=== PATIENT | male | born 1960 | race Caucasian/White ===

== ENCOUNTER 2022-09-10 12:33 | Emergency (ER) | payer MEDICAID ==
[~2022-09-10] VITALS: Ht 175.3 cm; Wt 80.7 kg
[2022-09-10] MEDS ORDERED: IV NS 0.9% 1,000 ML BAG IV ONE ×2 (13:30→15:00)
--- NOTE | 2022-09-10 13:32 | NUR ---
MOVE SHEET SUBMITTED.
--- NOTE | 2022-09-10 13:35 | NUR ---
IV ESTABLISHED. 20G RAC
--- NOTE | 2022-09-10 13:35 | NUR ---
BLOOD DRAWN AND SENT TO LAB
--- NOTE | 2022-09-10 13:38 | NUR ---
PATIENT TAKEN TO CT VIA [facility]
[2022-09-10 13:51] LABS: BASOPHILS % (AUTO) 0.2 % (0.0-2.0); EOSINOPHILS % (AUTO) 0.6 % (0.0-6.0); HEMATOCRIT 38 % (39-51); LYMPHOCYTES # (AUTO) 0.9 K/uL (0.8-4.8); LYMPHOCYTES % (AUTO) 15.8 % (20.0-44.0); MEAN CORPUSCULAR HGB CONC 32 g/dl (31.0-36.0); MEAN CORPUSCULAR VOLUME 82 fL (80-96); MONOCYTES # (AUTO) 0.5 K/uL (0.1-1.30); MONOCYTES % (AUTO) 8.8 % (2.0-12.0); NEUTROPHILS # (AUTO) 4.1 K/uL (1.8-8.9); NEUTROPHILS % (AUTO) 74.6 % (43.0-81.0); PLATELET COUNT (AUTO) 174 K/uL (150-450); RED BLOOD CELL COUNT(AUTO) 4.62 MIL/uL (4.5-6.0); WHITE BLOOD COUNT (AUTO) 5.5 K/uL (4.3-11.0)
--- NOTE | 2022-09-10 13:58 | NUR ---
COVID SWAB COLLECTED AND SENT TO LAB
[2022-09-10 13:59] LABS: CALCIUM, SERUM 11.1 mg/dL (8.5-10.1); CARBON DIOXIDE 27 mmol/L (21-32); CHLORIDE 102 mmol/L (98-107); CREATININE 1.1 mg/dL (0.6-1.3); GLUCOSE 148 mg/dL (74-106); POTASSIUM 4.1 mmol/L (3.5-5.1); SODIUM SERUM 138 mmol/L (136-145); UREA NITROGEN, BLOOD 19 mg/dL (7-18)
[2022-09-10 14:06] LABS: ALANINE AMINOTRANSFERASE 30 U/L (12-78); ALBUMIN 3.5 g/dL (3.4-5.0); ALKALINE PHOSPHATASE 120 U/L (46-116); ASPARTATE AMINOTRANSFERASE 16 U/L (15-37); BILIRUBIN,DIRECT 0.1 mg/dL (0.0-0.2); BILIRUBIN,TOTAL 0.4 mg/dL (0.2-1.0); TOTAL PROTEIN, SERUM 7.8 g/dL (6.4-8.2)
--- NOTE | 2022-09-10 14:24 | NUR ---
URINE COLLECTED AND SENT TO LAB
--- NOTE | 2022-09-10 14:36 | NUR ---
GIOVANNA REGAL [phone]
[2022-09-10 14:37] LABS: BILIRUBIN,URINE NEGATIVE (NEGATIVE); COLOR,URINE YELLOW (YELLOW); LEUKOCYTE ESTERASE ,URINE 2+ (NEGATIVE); NITRITE, URINE POSITIVE (NEGATIVE); PROTEIN,URINE 1+ mg/dl (NEGATIVE); UGLUCOSE NEGATIVE (NEGATIVE)
[2022-09-10] MEDS ORDERED: CEFTRIAXONE 1GM BAG (ER ONLY) 50 ML IV ONE ×2 (14:59→15:00)
[2022-09-10 15:15] LABS: BACTERIA,URINE 2+ /HPF (None Seen); RBC,URINE 0-2 /HPF (0-2); SQUAMOUS EPITHELIAL CELL,UR 0-2 /HPF (None Seen); WBC,URINE 51-80 /HPF (0-3)
[2022-09-10 15:16] LABS: MUCUS,URINE Moderate /LPF (None Seen)
[2022-09-10] MEDS ORDERED: ACETAMINOPHEN 325 MG TABLET PO PRN (16:00)
[2022-09-10] MEDS ORDERED: IV 1/2NS 1000 ML 1,000 ML IV PRN (16:00)
[2022-09-10] MEDS ORDERED: ONDANSETRON HCL/PF 4 MG/2 ML VIAL IVP PRN (16:00)
[2022-09-10] MEDS ORDERED: MAGNESIUM HYDROXIDE 30 ML UDC PO PRN (16:00)
[2022-09-10] MEDS ORDERED: Z GUARD REMEDY 4 OZ OINT TP PRN (16:00)
[2022-09-10] MEDS ORDERED: MAG HYDROX/AL HYDROX/SIMETH 30 ML UDC PO PRN (16:00)
[2022-09-10] MEDS ORDERED: HYDROCODONE/APAP 5/325MG TABLET PO PRN (16:00)
[2022-09-10] MEDS ORDERED: IV NS 0.9% 500 ML BAG IV ONE (18:00)
--- NOTE | 2022-09-10 18:53 | NUR ---
CALLED GIOVANNA CHEN [facility] [phone] FOR UPDATE: LOOKING FOR SNF FACILITY, WILL CONTACT US SOON THEY FIND A PLACEMENT.
--- NOTE | 2022-09-10 20:32 | NUR ---
ACCEPTED AT [facility]
--- NOTE | 2022-09-10 20:41 | NUR ---
PER GIOVANNA HILTON CM , PT GOT ACCEPTED AT [facility] ON [address] [facility]. TEL: [phone]
--- NOTE | 2022-09-10 21:03 | NUR ---
ROOM 7A AT FACILITY
--- NOTE | 2022-09-10 21:20 | NUR ---
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 AWAITINGFOR
--- NOTE | 2022-09-10 21:21 | NUR ---
AWAITING FOR CASIR FORM FROM GI[facility] ADMINISTRATIVE PROFESSIONAL. PT GOING TO RM 7A
--- NOTE | 2022-09-10 21:51 | NUR ---
[facility] CALLED ETA 90-120 MINUTES
--- NOTE | 2022-09-10 22:07 | NUR ---
TRANSPORTATION WAS POSTPONED TO 6AM PER SNF'S REQUEST.
[2022-09-11 05:01] LABS: BASOPHILS % (AUTO) 0.2 % (0.0-2.0); EOSINOPHILS % (AUTO) 1.7 % (0.0-6.0); HEMATOCRIT 34 % (39-51); HEMOGLOBIN 11.3 g/dL (13.5-17.5); LYMPHOCYTES # (AUTO) 1.1 K/uL (0.8-4.8); LYMPHOCYTES % (AUTO) 17.2 % (20.0-44.0); MEAN CORPUSCULAR HGB CONC 33 g/dl (31.0-36.0); MEAN CORPUSCULAR VOLUME 80 fL (80-96); MONOCYTES # (AUTO) 0.8 K/uL (0.1-1.30); MONOCYTES % (AUTO) 12.8 % (2.0-12.0); NEUTROPHILS # (AUTO) 4.2 K/uL (1.8-8.9); NEUTROPHILS % (AUTO) 68.1 % (43.0-81.0); PLATELET COUNT (AUTO) 159 K/uL (150-450); RED BLOOD CELL COUNT(AUTO) 4.24 MIL/uL (4.5-6.0); WHITE BLOOD COUNT (AUTO) 6.1 K/uL (4.3-11.0)
[2022-09-11 05:17] LABS: CALCIUM, SERUM 10.1 mg/dL (8.5-10.1); CREATININE 0.8 mg/dL (0.6-1.3); PHOSPHORUS 2.6 mg/dL (2.5-4.9); POTASSIUM 4.1 mmol/L (3.5-5.1)
[2022-09-11 06:00] VITALS: BP 120/69
[2022-09-11] MEDS ORDERED: CEPH500C2 PO (06:16)
--- NOTE | 2022-09-11 06:57 | NUR ---
[facility] AT BED SIDE TO TRANSFER PT TO SNF
[2022-09-11] MEDS ORDERED: PANTOPRAZOLE 40 MG TABLET.DR PO SCH (07:30)
[2022-09-11] MEDS ORDERED: CEFTRIAXONE 1 G in IV D5W 50 ML IV SCH (16:00)
== END 2022-09-11 07:28 ==
LOC: ER 12:53
DX: A41.9 Sepsis, unspecified organism (principal); N39.0 Urinary tract infection, site not specified; R53.1 Weakness; I10 Essential (primary) hypertension; Z20.822 Contact with and (suspected) exposure to COVID-19
CPT/HCPCS: 99291; 96365; 70450; 71045; 96361; 87426; 93005; 84145; 85025 ×2; 80048 ×2; 87086; 83605 ×2; 80076; 81001; 36415 ×2; 84484; 85730; 87040 ×2; 87081; 83735; 84100; J7030 ×2; J7040 ×2; J0696; C9803

== ENCOUNTER 2024-07-21 10:53 | Inpatient (IN) | payer MEDICARE, OTHER ==
[~2024-07-21] VITALS: Ht 175.3 cm; Wt 86.6 kg
[~2024-07-21 10:53] MED LIST: CEPH500C2 PO
[2024-07-21 11:28] LABS: APPEARANCE,URINE CLEAR (CLEAR); BILIRUBIN,URINE NEGATIVE (NEGATIVE); BLOOD, URINE NEGATIVE Ery/uL (NEGATIVE); COLOR,URINE YELLOW (YELLOW); KETONES,URINE NEGATIVE (NEGATIVE); LEUKOCYTE ESTERASE ,URINE TRACE (NEGATIVE); NITRITE, URINE NEGATIVE (NEGATIVE); PROTEIN,URINE NEGATIVE (NEGATIVE); UGLUCOSE NEGATIVE (NEGATIVE); UROBILINOGEN,URINE 0.2 EU/dL (0.2)
[2024-07-21 11:30] LABS: BASOPHILS % (AUTO) 0.6 % (0.0-2.0); EOSINOPHILS # (AUTO) 0.2 K/uL (0.0-0.7); HEMATOCRIT 42 % (39-51); HEMOGLOBIN 14.4 g/dL (13.5-17.5); LYMPHOCYTES # (AUTO) 1.2 K/uL (0.8-4.8); LYMPHOCYTES % (AUTO) 15.1 % (20.0-44.0); MEAN CORPUSCULAR HEMOGLOBIN 29 PG (26.0-33.0); MEAN CORPUSCULAR HGB CONC 34 g/dl (31.0-36.0); MEAN CORPUSCULAR VOLUME 85 fL (80-96); MONOCYTES # (AUTO) 0.7 K/uL (0.1-1.30); MONOCYTES % (AUTO) 8.1 % (2.0-12.0); NEUTROPHILS % (AUTO) 74.2 % (43.0-81.0); PLATELET COUNT (AUTO) 202 K/uL (150-450); RED BLOOD CELL COUNT(AUTO) 4.99 MIL/uL (4.5-6.0); RED CELL DISTRIBUTION WIDTH 13.5 % (11.5-15.0); WHITE BLOOD COUNT (AUTO) 8.1 K/uL (4.3-11.0)
[2024-07-21 11:36] LABS: AMPHETAMINE, URINE NEGATIVE (NEGATIVE); BARBITURATE, URINE NEGATIVE (NEGATIVE); BENZODIAZEPINE, URINE NEGATIVE (NEGATIVE); CANNABINOID, URINE NEGATIVE (NEGATIVE); COCCAINE, URINE NEGATIVE (NEGATIVE); OPIATE, URINE NEGATIVE (NEGATIVE); PHENCYCLIDINE SCREEN,URINE NEGATIVE (NEGATIVE)
[2024-07-21 11:38] LABS: CARBON DIOXIDE 23 mmol/L (21-32); CHLORIDE 106 mmol/L (98-107); CREATININE 1.3 mg/dL (0.6-1.3); GLUCOSE 147 mg/dL (74-106); POTASSIUM 4.2 mmol/L (3.5-5.1); SODIUM SERUM 140 mmol/L (136-145); UREA NITROGEN, BLOOD 22 mg/dL (7-18)
[2024-07-21 11:47] LABS: ALANINE AMINOTRANSFERASE 21 U/L (12-78); ALBUMIN 4.2 g/dL (3.4-5.0); ALKALINE PHOSPHATASE 124 U/L (46-116); ASPARTATE AMINOTRANSFERASE 21 U/L (15-37); BILIRUBIN,DIRECT 0.2 mg/dL (0.0-0.2); BILIRUBIN,TOTAL 0.7 mg/dL (0.2-1.0); TOTAL PROTEIN, SERUM 7.4 g/dL (6.4-8.2)
[2024-07-21 11:58] LABS: ACETAMINOPHEN <10 ug/ml (10-30); ALCOHOL, BLOOD < 3 mg/dL (0-10); SALICYLATE 0.7 mg/dL (2.8-20.0)
[2024-07-21] MEDS ORDERED: ATOR10TA PO (12:33)
[2024-07-21] MEDS ORDERED: TAMS-12 PO (12:33)
[2024-07-21] MEDS ORDERED: HYDR-500 PO (12:33)
[2024-07-21] MEDS ORDERED: VENL37.510 PO (12:33)
[2024-07-21] MEDS ORDERED: DIPH25TA27 PO (12:33)
[2024-07-21] MEDS ORDERED: ERGO500093 PO (12:33)
[2024-07-21] MEDS ORDERED: LISI10TA29 PO (12:33)
[2024-07-21] MEDS ORDERED: QUET50TA PO (12:33)
[2024-07-21] MEDS ORDERED: ASPI-1420 PO (12:33)
[2024-07-21] MEDS ORDERED: QUET100T PO (12:33)
[2024-07-21] MEDS ORDERED: TRAZ-182 PO (12:33)
[2024-07-21] MEDS ORDERED: PANT40TA49 PO (12:33)
[2024-07-21] MEDS ORDERED: BENZ1TAB7 PO (12:33)
[2024-07-21] MEDS ORDERED: METF-442 PO (12:33)
[2024-07-21] MEDS ORDERED: LITH300T3 PO (12:33)
[2024-07-21] MEDS ORDERED: DIVA500T54 PO (12:33)
[2024-07-21] MEDS ORDERED: CELE100C98 PO (12:33)
[2024-07-21 13:22] LABS: RBC,URINE 0-2 /HPF (0-2)
[2024-07-21 13:23] LABS: ADD URINE CULTURE YES; BACTERIA,URINE 1+ /HPF (None Seen); SQUAMOUS EPITHELIAL CELL,UR 0-2 /HPF (None Seen)
[2024-07-21 16:00] VITALS: O2SAT 98
[2024-07-21] MEDS ORDERED: MAG HYDROX/AL HYDROX/SIMETH 30 ML UDC PO PRN (17:00)
[2024-07-21] MEDS: BLOOD SUGAR DIAGNOSTIC 1 EACH STRIP IN ONE (17:52)
[2024-07-21 19:58] VITALS: BP 111/62; TEMP 98.4; O2SAT 100
[2024-07-21] MEDS ORDERED: DEXTROSE 50%-WATER 50 ML DISP.SYRIN IV PRN (21:00)
[2024-07-21] MEDS: ATORVASTATIN 10 MG TABLET PO SCH (21:42)
[2024-07-21] MEDS: TAMSULOSIN 0.4 MG CAP.SR.24H PO SCH (21:42)
[2024-07-21] MEDS: BLOOD SUGAR DIAGNOSTIC 1 EACH STRIP IN SCH (21:51)
[2024-07-21] MEDS: INSULIN REGULAR, HUMAN 100 UNIT/ML 3 ML VIAL SQ PRN (21:53)
[2024-07-22 07:38] LABS: ALBUMIN 3.9 g/dL (3.4-5.0); BILIRUBIN,TOTAL 0.6 mg/dL (0.2-1.0); CALCIUM, SERUM 9.9 mg/dL (8.5-10.1); CREATININE 1.1 mg/dL (0.6-1.3); POTASSIUM 4.2 mmol/L (3.5-5.1); TOTAL PROTEIN, SERUM 7.1 g/dL (6.4-8.2)
[2024-07-22 07:41] LABS: CHOLESTEROL 105 mg/dL (<200); HDL CHOLESTEROL 41 mg/dL (40-60); LDL 51 mg/dL (0-99); TRIGLYCERIDES 101 mg/dL (30-150)
[2024-07-22 08:00] VITALS: BP 138/77; TEMP 98.7; O2SAT 97
[2024-07-22] MEDS: CELECOXIB 100 MG CAPSULE PO SCH (08:54)
[2024-07-22] MEDS: PANTOPRAZOLE 40 MG TABLET.DR PO SCH (08:54)
[2024-07-22] MEDS: ASPIRIN EC 81 MG TABLET.DR PO SCH (08:54)
[2024-07-22] MEDS: LISINOPRIL (10MG) 10 MG TABLET PO SCH (08:58)
[2024-07-22] MEDS: LITHIUM CARBONATE (300 MG CAP) 300 MG CAPSULE PO SCH (12:26)
[2024-07-22 16:00] VITALS: BP 108/75; TEMP 98.6; O2SAT 99
[2024-07-22 16:27] LABS: CREATININE 1.1 mg/dL (0.6-1.3)
[2024-07-22] MEDS: DIVALPROEX SODIUM 500 MG TABLET.DR PO SCH (16:42)
[2024-07-22] MEDS: QUETIAPINE FUMARATE 25 MG TABLET PO SCH (16:42)
[2024-07-22 19:58] VITALS: BP 116/45; TEMP 98.6; O2SAT 100
[2024-07-22] MEDS: QUETIAPINE FUMARATE 100 MG TABLET PO SCH (21:29)
[2024-07-23 08:00] VITALS: BP 106/67; TEMP 98.6; O2SAT 95
[2024-07-23 16:00] VITALS: BP 110/58; TEMP 98.6; O2SAT 98
[2024-07-23 20:00] VITALS: BP 159/77; TEMP 98.1; O2SAT 98
[2024-07-24 08:00] VITALS: BP 105/58; TEMP 98; O2SAT 98
[2024-07-24 16:00] VITALS: BP 141/59; TEMP 98; O2SAT 98
[2024-07-24 20:00] VITALS: BP 127/82; TEMP 98; O2SAT 100
[2024-07-25 08:00] VITALS: BP 143/84; TEMP 97.9; O2SAT 96
[2024-07-25 16:00] VITALS: BP 138/72; TEMP 97.8; O2SAT 95
[2024-07-25 20:12] VITALS: BP 113/61; TEMP 99.3; O2SAT 100
[2024-07-26] MEDS: hydrOXYzine PAMOATE 25 MG CAPSULE PO PRN (05:40)
[2024-07-26 08:00] VITALS: BP 132/70; TEMP 98; O2SAT 100
[2024-07-26 15:40] VITALS: BP 109/56; TEMP 97.8; O2SAT 100
[2024-07-26 20:04] VITALS: BP 139/80; TEMP 97.9; O2SAT 100
[2024-07-27 08:00] VITALS: BP 124/67; TEMP 98.1; O2SAT 98
[2024-07-27] MEDS: DIVALPROEX SODIUM 125 MG CAP.SPRINK PO SCH (12:45)
[2024-07-27 16:00] VITALS: BP 124/77; TEMP 97.7; O2SAT 100
[2024-07-27 19:58] VITALS: BP 123/58; TEMP 97.9; O2SAT 100
[2024-07-28] MEDS: ZOLPIDEM TARTRATE 5 MG TABLET PO PRN (01:08)
[2024-07-28 08:00] VITALS: BP 122/74; TEMP 97.7; O2SAT 100
[2024-07-28] MEDS: HALOPERIDOL LACTATE INJ 5 MG/ML VIAL IM STA (14:03)
[2024-07-28] MEDS: diphenhydrAMINE HCL 50 MG/ML VIAL IV STA (14:46)
[2024-07-28 15:57] VITALS: BP 112/68; TEMP 98.1; O2SAT 96
[2024-07-28 20:00] VITALS: BP 112/59; TEMP 98.3; O2SAT 99
[2024-07-29 08:00] VITALS: BP 137/74; TEMP 98.6; O2SAT 100
[2024-07-29] MEDS: QUETIAPINE FUMARATE 25 MG TABLET PO SCH (13:21)
[2024-07-29 16:00] VITALS: BP 159/77; TEMP 98.6; O2SAT 95
[2024-07-29 20:15] VITALS: BP 145/78; TEMP 98.6; O2SAT 99
[2024-07-30 08:00] VITALS: BP 105/93; TEMP 97.5; O2SAT 100
[2024-07-30 16:00] VITALS: BP 138/81; TEMP 98; O2SAT 100
[2024-07-30 20:00] VITALS: BP 97/60; TEMP 97.9; O2SAT 99
[2024-07-31 08:00] VITALS: BP 109/74; TEMP 97.9; O2SAT 98
[2024-07-31 16:00] VITALS: BP 142/76; TEMP 98; O2SAT 97
[2024-07-31 20:07] VITALS: BP 143/71; TEMP 98.5; O2SAT 99
[2024-08-01] MEDS: ACETAMINOPHEN 325 MG TABLET PO PRN (04:25)
[2024-08-01 08:00] VITALS: BP 140/77; TEMP 98; O2SAT 98
[2024-08-01 16:00] VITALS: BP 135/75; TEMP 97.9; O2SAT 98
[2024-08-01] MEDS: MAGNESIUM HYDROXIDE 30 ML UDC PO PRN (16:45)
[2024-08-01 20:50] VITALS: BP 125/69; TEMP 97.8; O2SAT 98
[2024-08-02 07:49] LABS: APPEARANCE,URINE CLEAR (CLEAR); BILIRUBIN,URINE NEGATIVE (NEGATIVE); BLOOD, URINE NEGATIVE Ery/uL (NEGATIVE); COLOR,URINE YELLOW (YELLOW); KETONES,URINE NEGATIVE (NEGATIVE); LEUKOCYTE ESTERASE ,URINE NEGATIVE (NEGATIVE); NITRITE, URINE NEGATIVE (NEGATIVE); PROTEIN,URINE NEGATIVE (NEGATIVE); UGLUCOSE 2+ mg/dL (NEGATIVE)
[2024-08-02 08:00] VITALS: BP 123/90; TEMP 98; O2SAT 96
[2024-08-02 08:25] LABS: ADD URINE CULTURE NO; BACTERIA,URINE Rare /HPF (None Seen); RBC,URINE 0-2 /HPF (0-2); SQUAMOUS EPITHELIAL CELL,UR None Seen /HPF (None Seen); WBC,URINE 0-2 /HPF (0-3)
[2024-08-02 16:00] VITALS: BP 108/75; TEMP 98; O2SAT 95
[2024-08-02 20:34] VITALS: BP 116/71; TEMP 98.2; O2SAT 94
[2024-08-03 08:00] VITALS: BP 136/79; TEMP 98.6; O2SAT 95
== END 2024-08-03 13:45 | DRG 885 ==
LOC: ER 10:58 → GPS 15:29
PROVIDERS: ADMIT Psychiatry & Neurology Psychiatry; ATTEND Internal Medicine
DX: F25.0 Schizoaffective disorder, bipolar type (principal); F03.93 Unspecified dementia, unspecified severity, with mood disturbance; F03.92 Unspecified dementia, unspecified severity, with psychotic disturbance; F29 Unspecified psychosis not due to a substance or known physiological condition; I10 Essential (primary) hypertension; E11.9 Type 2 diabetes mellitus without complications; E78.5 Hyperlipidemia, unspecified; N40.0 Benign prostatic hyperplasia without lower urinary tract symptoms; Z79.84 Long term (current) use of oral hypoglycemic drugs; Z79.899 Other long term (current) drug therapy; Z20.822 Contact with and (suspected) exposure to COVID-19; M62.81 Muscle weakness (generalized); F41.9 Anxiety disorder, unspecified; F32.A Depression, unspecified; Z73.6 Limitation of activities due to disability
CPT/HCPCS: 36415; 80048-TC; 80053-TC; 80061-TC; 80076-TC; 80164-TC; 80178-TC; 81001; 82565-TC; 82962-TC; 85025-TC; 87086-TC; 97110-TC; 97116-TC; 97530-TC; G0480; J1200; J1630; J1815; Q0177

== ENCOUNTER 2024-09-29 15:30 | Inpatient (IN) | payer MEDICARE, OTHER ==
[~2024-09-29] VITALS: Ht 170.2 cm; Wt 89.8 kg
[2024-09-29 08:00] VITALS: BP 130/66; TEMP 99.7; O2SAT 99
[~2024-09-29 15:30] MED LIST changes: +ASPI-1420 PO; +ATOR10TA PO; +BENZ1TAB7 PO; +CELE100C98 PO; -CEPH500C2 PO; +DIPH25TA27 PO; +DIVA500T54 PO; +ERGO500093 PO; +HYDR-500 PO; +LISI10TA29 PO; +LITH300T3 PO; +METF-442 PO; +PANT40TA49 PO; +QUET100T PO; +QUET50TA PO; +TAMS-12 PO; +TRAZ-182 PO; +VENL37.510 PO
[2024-09-29] MEDS ORDERED: ACETAMINOPHEN ES 500 MG TABLET ONE (16:04)
[2024-09-29] MEDS: IV NS 0.9% 1,000 ML BAG IV ONE (16:05)
[2024-09-29] MEDS: ACETAMINOPHEN ES 500 MG TABLET PO ONE (16:06)
[2024-09-29 16:13] LABS: BASOPHILS % (AUTO) 0.1 % (0.0-2.0); EOSINOPHILS % (AUTO) 0.3 % (0.0-6.0); HEMATOCRIT 39 % (39-51); HEMOGLOBIN 12.8 g/dL (13.5-17.5); LYMPHOCYTES # (AUTO) 0.6 K/uL (0.8-4.8); MEAN CORPUSCULAR HEMOGLOBIN 28 PG (26.0-33.0); MEAN CORPUSCULAR HGB CONC 33 g/dl (31.0-36.0); MEAN CORPUSCULAR VOLUME 85 fL (80-96); MONOCYTES # (AUTO) 0.4 K/uL (0.1-1.30); MONOCYTES % (AUTO) 7.7 % (2.0-12.0); NEUTROPHILS # (AUTO) 4.8 K/uL (1.8-8.9); NEUTROPHILS % (AUTO) 81.9 % (43.0-81.0); PLATELET COUNT (AUTO) 154 K/uL (150-450); WHITE BLOOD COUNT (AUTO) 5.8 K/uL (4.3-11.0)
[2024-09-29 16:20] LABS: CALCIUM, SERUM 9.5 mg/dL (8.5-10.1); CARBON DIOXIDE 26 mmol/L (21-32); CHLORIDE 102 mmol/L (98-107); CREATININE 1.2 mg/dL (0.6-1.3); GLUCOSE 192 mg/dL (74-106); POTASSIUM 3.6 mmol/L (3.5-5.1); SODIUM SERUM 133 mmol/L (136-145); UREA NITROGEN, BLOOD 16 mg/dL (7-18)
[2024-09-29 16:28] LABS: LACTIC ACID 1.3 mmol/L (0.4-2.0)
[2024-09-29 16:30] LABS: APPEARANCE,URINE CLEAR (CLEAR); BILIRUBIN,URINE NEGATIVE (NEGATIVE); BLOOD, URINE 1+ Ery/uL (NEGATIVE); COLOR,URINE YELLOW (YELLOW); KETONES,URINE NEGATIVE (NEGATIVE); LEUKOCYTE ESTERASE ,URINE 2+ (NEGATIVE); NITRITE, URINE NEGATIVE (NEGATIVE); PROTEIN,URINE NEGATIVE (NEGATIVE); UGLUCOSE TRACE mg/dL (NEGATIVE); UROBILINOGEN,URINE 0.2 EU/dL (0.2)
[2024-09-29 16:34] LABS: ALANINE AMINOTRANSFERASE 24 U/L (12-78); ALBUMIN 3.2 g/dL (3.4-5.0); ALKALINE PHOSPHATASE 99 U/L (46-116); ASPARTATE AMINOTRANSFERASE 26 U/L (15-37); BILIRUBIN,DIRECT 0.2 mg/dL (0.0-0.2); BILIRUBIN,TOTAL 0.7 mg/dL (0.2-1.0); TOTAL PROTEIN, SERUM 7.2 g/dL (6.4-8.2)
[2024-09-29] MEDS: PIPERACILLIN /TAZOBACTAM 3.375 G in IV D5W 50 ML IV ONE (16:34)
[2024-09-29 16:35] LABS: INR 1.08 (0.91-1.10); PROTHROMBIN TIME 11.4 SECS (9.2-11.1)
[2024-09-29 16:42] LABS: ADD URINE CULTURE YES; BACTERIA,URINE Few /HPF (None Seen); SQUAMOUS EPITHELIAL CELL,UR Rare /HPF (None Seen); WBC,URINE 21-50 /HPF (0-3)
[2024-09-29] MEDS ORDERED: LITH300C2 PO (16:59)
[2024-09-29] MEDS ORDERED: LORA10TA7 PO (16:59)
[2024-09-29] MEDS ORDERED: VALP250C3 PO (16:59)
[2024-09-29] MEDS ORDERED: RISP1TAB97 PO (16:59)
[2024-09-29] MEDS ORDERED: ACET325T53 PO (16:59)
[2024-09-29] MEDS ORDERED: ACET-73 PO (16:59)
[2024-09-29] MEDS ORDERED: NA P133E RC (16:59)
[2024-09-29] MEDS ORDERED: HALO5VIA9 IM (16:59)
[2024-09-29] MEDS ORDERED: MAGN400O6 PO (16:59)
[2024-09-29] MEDS ORDERED: BISA10SU12 RC (16:59)
[2024-09-29] MEDS ORDERED: LORA-259 PO (16:59)
[2024-09-29] MEDS: VANCOMYCIN 1 GM in IV D5W 250 ML IV ONE (17:15)
[2024-09-29] MEDS ORDERED: DEXTROSE 50%-WATER 50 ML DISP.SYRIN IV PRN (18:00)
[2024-09-29] MEDS ORDERED: MAGNESIUM HYDROXIDE 30 ML UDC PO PRN (18:00)
[2024-09-29] MEDS ORDERED: ONDANSETRON HCL/PF 4 MG/2 ML VIAL IVP PRN (18:00)
[2024-09-29] MEDS ORDERED: MAG HYDROX/AL HYDROX/SIMETH 30 ML UDC PO PRN (18:00)
[2024-09-29] MEDS ORDERED: Z GUARD REMEDY 4 OZ OINT TP PRN (18:00)
[2024-09-29] MEDS: ENOXAPARIN SODIUM 40 MG/0.4 ML DISP.SYRIN SQ SCH (18:49)
[2024-09-29] MEDS: VALPROIC ACID 250 MG/5 ML UDC PO SCH (20:40)
[2024-09-29] MEDS: LITHIUM CARBONATE (300 MG CAP) 300 MG CAPSULE PO SCH (20:40)
[2024-09-29] MEDS: CEFEPIME 2 GM in IV D5W 100 ML IV SCH (20:40)
[2024-09-29] MEDS: BLOOD SUGAR DIAGNOSTIC 1 EACH STRIP IN SCH (22:18)
[2024-09-30] VITALS (7 sets, daily range): BP systolic 98–134; BP diastolic 56–74; TEMP 97.9–103.3; O2SAT 95–100
[2024-09-30] MEDS: ACETAMINOPHEN 325 MG TABLET PO PRN (00:03)
[2024-09-30] MEDS: LORAZEPAM 1 MG TABLET PO PRN ×2 (01:43→12:54)
[2024-09-30 07:24] LABS: BASOPHILS % (AUTO) 0.1 % (0.0-2.0); HEMATOCRIT 38 % (39-51); HEMOGLOBIN 12.3 g/dL (13.5-17.5); LYMPHOCYTES # (AUTO) 0.9 K/uL (0.8-4.8); LYMPHOCYTES % (AUTO) 8.9 % (20.0-44.0); MEAN CORPUSCULAR HEMOGLOBIN 28 PG (26.0-33.0); MEAN CORPUSCULAR HGB CONC 33 g/dl (31.0-36.0); MEAN CORPUSCULAR VOLUME 85 fL (80-96); MONOCYTES # (AUTO) 1.4 K/uL (0.1-1.30); MONOCYTES % (AUTO) 14.1 % (2.0-12.0); NEUTROPHILS # (AUTO) 7.6 K/uL (1.8-8.9); NEUTROPHILS % (AUTO) 76.9 % (43.0-81.0); PLATELET COUNT (AUTO) 135 K/uL (150-450); RED BLOOD CELL COUNT(AUTO) 4.41 MIL/uL (4.5-6.0); RED CELL DISTRIBUTION WIDTH 13.4 % (11.5-15.0); WHITE BLOOD COUNT (AUTO) 9.9 K/uL (4.3-11.0)
[2024-09-30 07:34] LABS: CALCIUM, SERUM 9.2 mg/dL (8.5-10.1); CREATININE 1.2 mg/dL (0.6-1.3); MAGNESIUM 2.4 mg/dL (1.8-2.4); PHOSPHORUS 2.6 mg/dL (2.5-4.9); POTASSIUM 4.2 mmol/L (3.5-5.1)
[2024-09-30] MEDS: HALOPERIDOL LACTATE INJ 5 MG/ML VIAL IM PRN (08:08)
[2024-09-30] MEDS: LORATADINE 10 MG TABLET PO SCH (08:28)
[2024-09-30] MEDS: risperiDONE 1 MG TABLET PO SCH ×2 (08:28→12:35)
[2024-09-30] MEDS: diphenhydrAMINE HCL 50 MG/ML VIAL IV ONE (09:01)
[2024-09-30] MEDS: HALOPERIDOL LACTATE INJ 5 MG/ML VIAL IM ONE (09:01)
[2024-09-30] MEDS: INSULIN REGULAR, HUMAN 100 UNIT/ML 3 ML VIAL SQ PRN (12:34)
[2024-10-01] VITALS: BP 119/70; TEMP 98.1; O2SAT 96
[2024-10-01 04:00] VITALS: BP 129/66; TEMP 98.1; O2SAT 97
[2024-10-01] MEDS: ZOLPIDEM TARTRATE 5 MG TABLET PO PRN (04:10)
[2024-10-01 06:35] LABS: BASOPHILS % (AUTO) 0.2 % (0.0-2.0); EOSINOPHILS # (AUTO) 0.1 K/uL (0.0-0.7); EOSINOPHILS % (AUTO) 2.5 % (0.0-6.0); HEMATOCRIT 37 % (39-51); HEMOGLOBIN 12.6 g/dL (13.5-17.5); LYMPHOCYTES # (AUTO) 1.1 K/uL (0.8-4.8); LYMPHOCYTES % (AUTO) 20.5 % (20.0-44.0); MEAN CORPUSCULAR HEMOGLOBIN 29 PG (26.0-33.0); MEAN CORPUSCULAR HGB CONC 34 g/dl (31.0-36.0); MEAN CORPUSCULAR VOLUME 85 fL (80-96); MONOCYTES # (AUTO) 0.6 K/uL (0.1-1.30); MONOCYTES % (AUTO) 10.7 % (2.0-12.0); NEUTROPHILS # (AUTO) 3.6 K/uL (1.8-8.9); NEUTROPHILS % (AUTO) 66.1 % (43.0-81.0); PLATELET COUNT (AUTO) 146 K/uL (150-450); RED BLOOD CELL COUNT(AUTO) 4.37 MIL/uL (4.5-6.0); RED CELL DISTRIBUTION WIDTH 12.9 % (11.5-15.0); WHITE BLOOD COUNT (AUTO) 5.4 K/uL (4.3-11.0)
[2024-10-01 07:24] LABS: CALCIUM, SERUM 9.3 mg/dL (8.5-10.1); CREATININE 1.1 mg/dL (0.6-1.3); MAGNESIUM 2.4 mg/dL (1.8-2.4); POTASSIUM 3.9 mmol/L (3.5-5.1)
[2024-10-01 08:00] VITALS: BP 128/69; TEMP 97.7; O2SAT 98
[2024-10-01] MEDS: HALOPERIDOL LACTATE INJ 5 MG/ML VIAL IM ONE (08:33)
[2024-10-01] MEDS: diphenhydrAMINE HCL 50 MG/ML VIAL IV ONE (08:38)
[2024-10-01 12:00] VITALS: BP 137/73; TEMP 97.5; O2SAT 99
[2024-10-01 16:00] VITALS: BP 116/67; TEMP 97.5; O2SAT 99
[2024-10-01] MEDS: K PHOS NEUTRAL 250 MG TABLET PO ONE (17:07)
[2024-10-01] MEDS ORDERED: HALOPERIDOL LACTATE INJ 5 MG/ML VIAL IM ONE (19:30)
[2024-10-01] MEDS ORDERED: LORAZEPAM INJ 2 MG/ML VIAL IM ONE (19:30)
[2024-10-01] MEDS ORDERED: diphenhydrAMINE HCL 50 MG/ML VIAL IM ONE (19:30)
[2024-10-01] MEDS ORDERED: MUPIROCIN OINT 2% 22 GM TUBE NS SCH (21:00)
[2024-10-01] MEDS ORDERED: CEPHALEXIN MONOHYDRATE 500 MG CAPSULE PO SCH (21:00)
[2024-10-01] MEDS ORDERED: ACET-3117 PO (22:00)
[2024-10-01] MEDS ORDERED: CEPH500C2 PO (22:02)
[2024-10-01] MEDS ORDERED: MUPI22OI7 TP (22:04)
== END 2024-10-01 19:49 | DRG 871 ==
LOC: ER 15:39 → TELE-TD 17:16 → UNDOADMIN 17:16 → TELE-TD 17:18 → TELE1 18:37 → TELE-TD 18:37 → GPS 10-01 19:04 → TELE1 10-01 19:04 → GPS 10-01 19:35 → UNDODISIN 10-01 19:49
PROVIDERS: ADMIT Nurse Practitioner Acute Care; ATTEND Nurse Practitioner Acute Care
DX: A41.9 Sepsis, unspecified organism (principal); G93.41 Metabolic encephalopathy; D68.59 Other primary thrombophilia; N39.0 Urinary tract infection, site not specified; E44.1 Mild protein-calorie malnutrition; E66.01 Morbid (severe) obesity due to excess calories; Z68.31 Body mass index [BMI] 31.0-31.9, adult; R16.1 Splenomegaly, not elsewhere classified; E78.5 Hyperlipidemia, unspecified; N40.1 Benign prostatic hyperplasia with lower urinary tract symptoms; N39.498 Other specified urinary incontinence; E88.09 Other disorders of plasma-protein metabolism, not elsewhere classified; I10 Essential (primary) hypertension; F41.9 Anxiety disorder, unspecified; E11.9 Type 2 diabetes mellitus without complications; F25.0 Schizoaffective disorder, bipolar type; Z79.899 Other long term (current) drug therapy; Z79.84 Long term (current) use of oral hypoglycemic drugs; Z78.1 Physical restraint status; Z22.322 Carrier or suspected carrier of Methicillin resistant Staphylococcus aureus
CPT/HCPCS: 36415; 71045-TC; 80048-TC; 80061-TC; 80076-TC; 81001; 82962-TC; 83605-TC; 83735-TC; 83880; 84100-TC; 84484-TC; 85025-TC; 85730-TC; 87040-TC; 87081-TC; 87086-TC; 93307-TC; A4223; G0378; J0692; J1200; J1630; J1650; J1815; J2543; J3230; J3370; J7030; J7040; J7050; J7060

== ENCOUNTER 2024-10-01 21:34 | Inpatient (IN) | payer MEDICARE, OTHER ==
[~2024-10-01] VITALS: Ht 170.2 cm; Wt 89.8 kg
[2024-10-01 20:00] VITALS: BP 142/65; TEMP 97.3; O2SAT 100
[~2024-10-01 21:34] MED LIST changes: +ACET-73 PO; +ACET325T53 PO; -ASPI-1420 PO; -ATOR10TA PO; -BENZ1TAB7 PO; +BISA10SU12 RC; -CELE100C98 PO; -DIPH25TA27 PO; -DIVA500T54 PO; -ERGO500093 PO; +HALO5VIA9 IM; -HYDR-500 PO; -LISI10TA29 PO; +LITH300C2 PO; +LORA-259 PO; +LORA10TA7 PO; +MAGN400O6 PO; -METF-442 PO; +NA P133E RC; -PANT40TA49 PO; -QUET100T PO; -QUET50TA PO; +RISP1TAB97 PO; -TAMS-12 PO; -TRAZ-182 PO; +VALP250C3 PO; -VENL37.510 PO
[2024-10-01] MEDS ORDERED: MAGNESIUM HYDROXIDE 30 ML UDC PO PRN (22:00)
[2024-10-01] MEDS ORDERED: ZOLPIDEM TARTRATE 5 MG TABLET PO PRN (22:00)
[2024-10-01] MEDS ORDERED: MAG HYDROX/AL HYDROX/SIMETH 30 ML UDC PO PRN (22:00)
[2024-10-01] MEDS ORDERED: ACET-3117 PO (22:00)
[2024-10-01] MEDS ORDERED: LORAZEPAM 0.5 MG TABLET PO PRN (22:00)
[2024-10-01] MEDS ORDERED: CEPH500C2 PO (22:02)
[2024-10-01] MEDS ORDERED: MUPI22OI7 TP (22:04)
[2024-10-01] MEDS ORDERED: DEXTROSE 50%-WATER 50 ML DISP.SYRIN IV PRN (22:30)
[2024-10-01] MEDS ORDERED: BISACODYL SUPP (10 MG) 10 MG/SUPP.RECT SUPP.RECT RC PRN (23:00)
[2024-10-01] MEDS ORDERED: NA PHOS,M-B/NA PHOS,DI-BA 1 EA ENEMA RC PRN (23:00)
[2024-10-01] MEDS: BLOOD SUGAR DIAGNOSTIC 1 EACH STRIP IN ONE (23:18)
[2024-10-01] MEDS ORDERED: ACETAMINOPHEN 325 MG TABLET PO PRN (23:30)
[2024-10-02] MEDS: ACETAMINOPHEN 325 MG TABLET PO PRN (06:30)
[2024-10-02] MEDS: BLOOD SUGAR DIAGNOSTIC 1 EACH STRIP IN SCH (07:02)
[2024-10-02] MEDS: INSULIN REGULAR, HUMAN 100 UNIT/ML 3 ML VIAL SQ PRN (07:34)
[2024-10-02 08:00] VITALS: BP 127/73; TEMP 97.7; O2SAT 98
[2024-10-02] MEDS: CEPHALEXIN MONOHYDRATE 500 MG CAPSULE PO SCH (08:22)
[2024-10-02] MEDS: LORATADINE 10 MG TABLET PO SCH (08:22)
[2024-10-02] MEDS: NICOTINE PATCH (14MG) 14 MG PATCH.TD24 TD SCH (08:33)
[2024-10-02] MEDS ORDERED: MAGNESIUM HYDROXIDE 30 ML UDC PO SCH (09:00)
[2024-10-02] MEDS: HYDROGEL DRESSING 90 GM TUBE TP SCH (09:24)
[2024-10-02] MEDS: MUPIROCIN OINT 2% 22 GM TUBE TP SCH (09:24)
[2024-10-02] MEDS: DIVALPROEX SODIUM 250 MG TABLET.DR PO SCH (13:25)
[2024-10-02] MEDS: risperiDONE 1 MG TABLET PO SCH (13:25)
[2024-10-02 16:00] VITALS: BP 154/69; TEMP 98.7; O2SAT 98
[2024-10-02 21:09] VITALS: BP 150/66; TEMP 98.2; O2SAT 98
[2024-10-02] MEDS: LITHIUM CARBONATE 150 MG CAPSULE PO SCH (21:15)
[2024-10-03] MEDS: LORAZEPAM 1 MG TABLET PO PRN (05:14)
[2024-10-03 07:43] LABS: CALCIUM, SERUM 9.6 mg/dL (8.5-10.1); POTASSIUM 4.7 mmol/L (3.5-5.1)
[2024-10-03 08:00] VITALS: BP 114/61; TEMP 97.9; O2SAT 100
[2024-10-03 08:12] LABS: BASOPHILS % (AUTO) 0.1 % (0.0-2.0); EOSINOPHILS # (AUTO) 0.2 K/uL (0.0-0.7); EOSINOPHILS % (AUTO) 2.4 % (0.0-6.0); HEMATOCRIT 38 % (39-51); HEMOGLOBIN 12.2 g/dL (13.5-17.5); LYMPHOCYTES # (AUTO) 1.3 K/uL (0.8-4.8); LYMPHOCYTES % (AUTO) 19.4 % (20.0-44.0); MEAN CORPUSCULAR HEMOGLOBIN 28 PG (26.0-33.0); MEAN CORPUSCULAR HGB CONC 33 g/dl (31.0-36.0); MEAN CORPUSCULAR VOLUME 85 fL (80-96); MONOCYTES # (AUTO) 0.5 K/uL (0.1-1.30); MONOCYTES % (AUTO) 7.6 % (2.0-12.0); NEUTROPHILS # (AUTO) 4.6 K/uL (1.8-8.9); NEUTROPHILS % (AUTO) 70.5 % (43.0-81.0); PLATELET COUNT (AUTO) 170 K/uL (150-450); RED BLOOD CELL COUNT(AUTO) 4.43 MIL/uL (4.5-6.0); RED CELL DISTRIBUTION WIDTH 12.8 % (11.5-15.0); WHITE BLOOD COUNT (AUTO) 6.5 K/uL (4.3-11.0)
[2024-10-03 16:00] VITALS: BP 119/63; TEMP 97.7; O2SAT 99
[2024-10-03 20:18] VITALS: BP 140/70; TEMP 97.7; O2SAT 98
[2024-10-03] MEDS: IBUPROFEN 600 MG TABLET PO PRN (22:55)
[2024-10-03] MEDS: ZOLPIDEM TARTRATE 5 MG TABLET PO PRN (23:19)
[2024-10-04 08:00] VITALS: BP 153/63; TEMP 97.8; O2SAT 98
[2024-10-04] MEDS: MUPIROCIN OINT 2% 22 GM TUBE NS SCH (09:03)
[2024-10-04] MEDS: diphenhydrAMINE HCL 50 MG/ML VIAL IM ONE (11:16)
[2024-10-04] MEDS: HALOPERIDOL LACTATE INJ 5 MG/ML VIAL IM ONE (11:17)
[2024-10-04] MEDS: risperiDONE 1 MG TABLET PO SCH (13:54)
[2024-10-04 15:29] VITALS: BP 128/61; TEMP 98.8; O2SAT 98
[2024-10-04 20:50] VITALS: BP 134/66; TEMP 98.6; O2SAT 97
[2024-10-05] MEDS: diphenhydrAMINE HCL 50 MG/ML VIAL IM STA (01:17)
[2024-10-05] MEDS: HALOPERIDOL LACTATE INJ 5 MG/ML VIAL IM STA (01:17)
[2024-10-05 08:00] VITALS: BP 122/57; TEMP 97.8; O2SAT 100
[2024-10-05] MEDS: HALOPERIDOL LACTATE INJ 5 MG/ML VIAL IM ONE (13:31)
[2024-10-05] MEDS: diphenhydrAMINE HCL 50 MG/ML VIAL IM ONE (13:31)
[2024-10-05 16:00] VITALS: BP 106/64; TEMP 98.4; O2SAT 98
[2024-10-05 20:33] VITALS: BP 143/84; TEMP 98.8; O2SAT 98
[2024-10-06] MEDS: HALOPERIDOL LACTATE INJ 5 MG/ML VIAL IM STA (07:49)
[2024-10-06] MEDS: diphenhydrAMINE HCL 50 MG/ML VIAL IM STA (07:49)
[2024-10-06 08:00] VITALS: BP 163/80; TEMP 97.8; O2SAT 97
[2024-10-06] MEDS: LITHIUM CARBONATE 150 MG CAPSULE PO SCH (12:03)
[2024-10-06] MEDS: risperiDONE 1 MG TABLET PO SCH (12:04)
[2024-10-06 16:05] VITALS: BP 140/62; TEMP 97.8; O2SAT 100
[2024-10-06] MEDS: DIVALPROEX SODIUM 250 MG TABLET.DR PO SCH (16:31)
[2024-10-06 20:19] VITALS: BP 139/67; TEMP 98.4; O2SAT 97
[2024-10-07 08:00] VITALS: BP 136/63; TEMP 98.7; O2SAT 98
[2024-10-07] MEDS: HALOPERIDOL LACTATE INJ 5 MG/ML VIAL IM ONE (12:46)
[2024-10-07] MEDS: diphenhydrAMINE HCL 50 MG/ML VIAL IM ONE (12:46)
[2024-10-07 16:00] VITALS: BP 118/60; TEMP 98.7; O2SAT 98
[2024-10-07 20:03] VITALS: BP 155/72; TEMP 98.1; O2SAT 99
[2024-10-08 08:00] VITALS: BP 133/87; TEMP 98; O2SAT 97
[2024-10-08 16:00] VITALS: BP 135/70; TEMP 97.8; O2SAT 98
[2024-10-08 19:53] VITALS: BP 117/62; TEMP 98.4; O2SAT 97
[2024-10-08] MEDS: TAMSULOSIN 0.4 MG CAP.SR.24H PO SCH (21:06)
[2024-10-09 08:00] VITALS: BP 123/76; TEMP 98.7; O2SAT 98
[2024-10-09 16:00] VITALS: BP 136/70; TEMP 98; O2SAT 97
[2024-10-09 20:00] VITALS: BP 124/63; TEMP 98.2; O2SAT 98
[2024-10-10 08:00] VITALS: BP 120/67; TEMP 97.7; O2SAT 94
[2024-10-10] MEDS: BACLOFEN (10 MG) 10 MG TABLET PO SCH (13:17)
[2024-10-10 16:00] VITALS: BP 108/70; TEMP 97.8; O2SAT 99
[2024-10-11 08:00] VITALS: BP 145/68; TEMP 98; O2SAT 100
[2024-10-11 16:05] VITALS: BP 105/60; TEMP 98.9; O2SAT 97
[2024-10-11 20:33] VITALS: BP 120/62; TEMP 98.1; O2SAT 98
[2024-10-12 08:00] VITALS: BP 135/62; TEMP 98.6; O2SAT 99
[2024-10-12] MEDS: DIVALPROEX SODIUM 250 MG TABLET.DR PO SCH (14:19)
[2024-10-12 16:00] VITALS: BP 128/74; TEMP 98.6; O2SAT 98
[2024-10-12 20:14] VITALS: BP 135/63; TEMP 97.9; O2SAT 96
[2024-10-13 08:00] VITALS: BP 136/76; TEMP 97.8; O2SAT 100
[2024-10-13 16:09] VITALS: BP 133/55; TEMP 97.8; O2SAT 98
[2024-10-13] MEDS: PREGABALIN 25 MG CAPSULE PO SCH (16:51)
[2024-10-13 20:15] VITALS: BP 137/79; TEMP 97.9; O2SAT 98
[2024-10-14 08:00] VITALS: BP 141/60; TEMP 98.6; O2SAT 98
[2024-10-14 16:00] VITALS: BP 125/61; TEMP 97.5; O2SAT 98
[2024-10-14 20:19] VITALS: BP 147/69; TEMP 97.8; O2SAT 99
[2024-10-15 08:00] VITALS: BP 122/71; TEMP 97.7; O2SAT 98
== END 2024-10-15 13:45 | DRG 885 ==
LOC: GPS 21:34
PROVIDERS: ADMIT Psychiatry & Neurology Psychiatry; ATTEND Nurse Practitioner Family
DX: F25.0 Schizoaffective disorder, bipolar type (principal); N39.0 Urinary tract infection, site not specified; F39 Unspecified mood [affective] disorder; E66.9 Obesity, unspecified; I10 Essential (primary) hypertension; E11.9 Type 2 diabetes mellitus without complications; E78.5 Hyperlipidemia, unspecified; N40.1 Benign prostatic hyperplasia with lower urinary tract symptoms; L89.96 Pressure-induced deep tissue damage of unspecified site; G56.03 Carpal tunnel syndrome, bilateral upper limbs; F31.2 Bipolar disorder, current episode manic severe with psychotic features; Z68.31 Body mass index [BMI] 31.0-31.9, adult; Z73.6 Limitation of activities due to disability; Z87.01 Personal history of pneumonia (recurrent); F03.90 Unspecified dementia, unspecified severity, without behavioral disturbance, psychotic disturbance, mood disturbance, and anxiety
CPT/HCPCS: 36415; 73130-TC; 80048-TC; 80061-TC; 80164-TC; 80178-TC; 82962-TC; 85025-TC; 87081-TC; A4349; A6248; J1200; J1630; J1815

== ENCOUNTER 2024-11-07 16:26 | Inpatient (IN) | payer MEDICARE, OTHER ==
[~2024-11-07] VITALS: Ht 175.3 cm; Wt 79.4 kg
[~2024-11-07 16:26] MED LIST changes: +ACET-3117 PO; -ACET-73 PO; -ACET325T53 PO; +CEPH500C2 PO; -HALO5VIA9 IM; -LITH300C2 PO; -LITH300T3 PO; -LORA-259 PO; +MUPI22OI7 TP; -RISP1TAB97 PO; -VALP250C3 PO
[2024-11-07 17:27] LABS: CALCIUM, SERUM 8.9 mg/dL (8.5-10.1); CREATININE 1.0 mg/dL (0.6-1.3); SODIUM SERUM 140 mmol/L (136-145); UREA NITROGEN, BLOOD 16 mg/dL (7-18)
[2024-11-07 17:33] LABS: ALCOHOL, BLOOD < 3 mg/dL (0-10); ASPARTATE AMINOTRANSFERASE 13 U/L (15-37); TOTAL PROTEIN, SERUM 6.4 g/dL (6.4-8.2)
[2024-11-07 17:49] LABS: PLATELET COUNT (AUTO) 123 K/uL (150-450); RED BLOOD CELL COUNT(AUTO) 4.53 MIL/uL (4.5-6.0); RED CELL DISTRIBUTION WIDTH 14.5 % (11.5-15.0); WHITE BLOOD COUNT (AUTO) 4.9 K/uL (4.3-11.0)
[2024-11-07 17:51] LABS: APPEARANCE,URINE CLEAR (CLEAR); BLOOD, URINE NEGATIVE Ery/uL (NEGATIVE); LEUKOCYTE ESTERASE ,URINE TRACE (NEGATIVE); NITRITE, URINE NEGATIVE (NEGATIVE); UGLUCOSE NEGATIVE (NEGATIVE)
[2024-11-07 18:09] LABS: AMPHETAMINE, URINE NEGATIVE (NEGATIVE); BARBITURATE, URINE NEGATIVE (NEGATIVE); BENZODIAZEPINE, URINE NEGATIVE (NEGATIVE); CANNABINOID, URINE NEGATIVE (NEGATIVE); COCCAINE, URINE NEGATIVE (NEGATIVE); OPIATE, URINE NEGATIVE (NEGATIVE)
[2024-11-07 18:11] LABS: ADD URINE CULTURE NO; SQUAMOUS EPITHELIAL CELL,UR 0-2 /HPF (None Seen)
[2024-11-07] MEDS ORDERED: LORAZEPAM 1 MG TABLET PO PRN (21:30)
[2024-11-07] MEDS ORDERED: MAGNESIUM HYDROXIDE 30 ML UDC PO PRN (21:30)
[2024-11-07] MEDS ORDERED: MAG HYDROX/AL HYDROX/SIMETH 30 ML UDC PO PRN (21:30)
[2024-11-07] MEDS ORDERED: ZOLPIDEM TARTRATE 5 MG TABLET PO PRN (21:30)
[2024-11-07] MEDS: BLOOD SUGAR DIAGNOSTIC 1 EACH STRIP IN ONE (21:46)
[2024-11-08] MEDS ORDERED: INSU100V3 SQ (08:05)
[2024-11-08] MEDS ORDERED: PREG25CA51 PO (08:05)
[2024-11-08] MEDS ORDERED: TAMS-12 PO (08:05)
[2024-11-08] MEDS ORDERED: CARB1TAB21 PO (08:05)
[2024-11-08] MEDS ORDERED: DIVA500T2 PO (08:05)
[2024-11-08] MEDS ORDERED: BACL10TA PO (08:05)
[2024-11-08] MEDS ORDERED: LIDO30AD10 TP (08:05)
[2024-11-08] MEDS ORDERED: ZOLP5TAB2 PO (08:05)
[2024-11-08] MEDS ORDERED: IBUP-1955 PO (08:05)
[2024-11-08] MEDS ORDERED: RISP3TAB5 PO (08:05)
[2024-11-08] MEDS ORDERED: MAG30ORA PO (08:05)
[2024-11-08] MEDS ORDERED: LORA-259 PO (08:05)
[2024-11-08 08:06] LABS: ASPARTATE AMINOTRANSFERASE 13.0 U/L (15-37); CALCIUM, SERUM 9.4 mg/dL (8.5-10.1); CREATININE 1.0 mg/dL (0.6-1.3); SODIUM SERUM 142.0 mmol/L (136-145); TOTAL PROTEIN, SERUM 6.6 g/dL (6.4-8.2); UREA NITROGEN, BLOOD 18.0 mg/dL (7-18)
[2024-11-08 08:13] VITALS: BP 137/65; TEMP 98.2; O2SAT 97
[2024-11-08 08:24] LABS: LDL 196.0 mg/dL (0-99)
[2024-11-08] MEDS ORDERED: DEXTROSE 50%-WATER 50 ML DISP.SYRIN IV PRN (09:00)
[2024-11-08] MEDS: DIVALPROEX SODIUM 500 MG TABLET.DR PO SCH (09:00)
[2024-11-08] MEDS: PREGABALIN 25 MG CAPSULE PO SCH (09:52)
[2024-11-08] MEDS: CARBIDOPA/LEVODOPA 25/100 MG 1 UDTAB PO SCH (09:52)
[2024-11-08] MEDS: DOCUSATE SODIUM LIQ 100 MG/10 ML UDC PO SCH (09:52)
[2024-11-08] MEDS: POLYETHYLENE GLYCOL 3350 17 GM POWD.PACK PO SCH (09:53)
[2024-11-08] MEDS: LORAZEPAM INJ 2 MG/ML VIAL IM ONE (10:25)
[2024-11-08] MEDS: HALOPERIDOL LACTATE INJ 5 MG/ML VIAL IM ONE (10:26)
[2024-11-08] MEDS: BLOOD SUGAR DIAGNOSTIC 1 EACH STRIP IN SCH (11:53)
[2024-11-08] MEDS: INSULIN REGULAR, HUMAN 100 UNIT/ML 3 ML VIAL SQ PRN (11:58)
[2024-11-08 17:41] VITALS: BP 132/55; TEMP 97.8; O2SAT 96
[2024-11-08 20:40] VITALS: BP 130/62; TEMP 98; O2SAT 96
[2024-11-08] MEDS: TAMSULOSIN 0.4 MG CAP.SR.24H PO SCH (21:12)
[2024-11-08 21:55] LABS: CREATININE 1.1 mg/dL (0.6-1.3)
[2024-11-09 08:00] VITALS: BP 122/74; TEMP 98.1; O2SAT 99
[2024-11-09] MEDS: ATORVASTATIN 40 MG TABLET PO SCH (09:35)
[2024-11-09 15:59] VITALS: BP 140/73; TEMP 97.7; O2SAT 98
[2024-11-09] MEDS: DIVALPROEX SODIUM 500 MG TABLET.DR PO SCH (16:15)
[2024-11-09 19:40] VITALS: BP 120/75; TEMP 98; O2SAT 98
[2024-11-09] MEDS: PALIPERIDONE PALMITATE 234 MG/1.5 ML SYRINGE IM ONE (19:52)
[2024-11-09 20:05] VITALS: BP 116/52; TEMP 98; O2SAT 100
[2024-11-10 08:16] VITALS: BP 104/65; TEMP 97.8; O2SAT 98
[2024-11-10 16:08] VITALS: BP 130/72; TEMP 97.8; O2SAT 96
[2024-11-10 19:53] VITALS: BP 156/98; TEMP 98.3; O2SAT 98
[2024-11-11 08:00] VITALS: BP 122/69; TEMP 98.1; O2SAT 99
[2024-11-11 16:00] VITALS: BP 116/68; TEMP 98.7; O2SAT 97
[2024-11-11 19:47] VITALS: BP 122/71; TEMP 98.4; O2SAT 98
[2024-11-11 23:05] VITALS: BP 122/70; TEMP 97.8; O2SAT 97
[2024-11-12 08:00] VITALS: BP 128/62; TEMP 98.1; O2SAT 98
[2024-11-12 16:00] VITALS: BP 122/58; TEMP 98.8; O2SAT 95
[2024-11-13 08:00] VITALS: BP 112/73; TEMP 97.8; O2SAT 95
[2024-11-13 08:01] LABS: PLATELET COUNT (AUTO) 128 K/uL (150-450); RED BLOOD CELL COUNT(AUTO) 4.89 MIL/uL (4.5-6.0); RED CELL DISTRIBUTION WIDTH 14.8 % (11.5-15.0); WHITE BLOOD COUNT (AUTO) 4.7 K/uL (4.3-11.0)
[2024-11-13] MEDS: PROPRANOLOL HCL 10 MG TABLET PO SCH (14:22)
[2024-11-13 16:00] VITALS: BP 124/77; TEMP 97.9; O2SAT 96
[2024-11-14 08:00] VITALS: BP 107/71; TEMP 98.6; O2SAT 98
[2024-11-14 16:00] VITALS: BP 136/98; TEMP 98.1; O2SAT 98
[2024-11-14 20:14] VITALS: BP 120/58; TEMP 98.2; O2SAT 99
[2024-11-15 08:00] VITALS: BP 109/86; TEMP 97.7; O2SAT 98
[2024-11-15] MEDS: PALIPERIDONE PALMITATE 156 MG/ML SYRINGE IM ONE (11:13)
[2024-11-15] MEDS: LORAZEPAM 0.5 MG TABLET PO PRN (15:54)
[2024-11-15 16:00] VITALS: BP 109/57; TEMP 98.6; O2SAT 98
[2024-11-15] MEDS: LOPERAMIDE HCL (2 MG CAP) 2 MG CAPSULE PO PRN (17:46)
[2024-11-15 20:34] VITALS: BP 107/56; TEMP 98.6; O2SAT 98
[2024-11-16 08:00] VITALS: BP 100/77; TEMP 98; O2SAT 100
[2024-11-16 16:00] VITALS: BP 108/66; TEMP 97.9; O2SAT 97
[2024-11-16 19:53] VITALS: BP 116/55; TEMP 98; O2SAT 97
[2024-11-17 08:00] VITALS: BP 163/65; TEMP 98.7; O2SAT 97
[2024-11-17] MEDS: BENZTROPINE MESYLATE (1 MG) 1 MG TABLET PO ONE (15:52)
[2024-11-17 16:00] VITALS: BP 110/85; TEMP 98.7; O2SAT 100
[2024-11-17 20:05] VITALS: BP 110/64; TEMP 98.6; O2SAT 100
[2024-11-18] MEDS: ZOLPIDEM TARTRATE 5 MG TABLET PO PRN (00:42)
[2024-11-18] MEDS: ACETAMINOPHEN 325 MG TABLET PO PRN (06:15)
[2024-11-18 08:00] VITALS: BP 130/70; TEMP 97.9; O2SAT 99
[2024-11-18] MEDS: OLANZAPINE 10 MG VIAL IM STA (08:17)
[2024-11-18] MEDS: BENZTROPINE MESYLATE (1 MG) 1 MG TABLET PO SCH (09:00)
[2024-11-18] MEDS: DIVALPROEX SODIUM 125 MG TABLET.DR PO SCH (12:59)
[2024-11-18 13:00] LABS: APPEARANCE,URINE CLEAR (CLEAR); BLOOD, URINE NEGATIVE Ery/uL (NEGATIVE); LEUKOCYTE ESTERASE ,URINE NEGATIVE (NEGATIVE); NITRITE, URINE NEGATIVE (NEGATIVE); UGLUCOSE NEGATIVE (NEGATIVE)
[2024-11-18 16:00] VITALS: BP 109/63; TEMP 98.4; O2SAT 98
[2024-11-18 19:56] VITALS: BP 146/76; TEMP 97.8; O2SAT 99
[2024-11-19 08:00] VITALS: BP 124/61; TEMP 98.6; O2SAT 97
[2024-11-19 16:00] VITALS: BP 129/72; TEMP 98.6; O2SAT 98
[2024-11-19 19:40] VITALS: BP 121/72; TEMP 98.4; O2SAT 99
[2024-11-20] MEDS ORDERED: LORAZEPAM 0.5 MG TABLET ONE ×2 (01:43→01:53)
[2024-11-20 08:00] VITALS: BP 117/83; TEMP 98.1; O2SAT 99
[2024-11-20 08:07] LABS: FOLIC ACID 6.8 ng/mL (>3.0)
[2024-11-20 08:38] VITALS: BP 117/83
[2024-11-24 06:07] LABS: VITAMIN B1 THIAMINE,WB 142.7 nmol/L (66.5-200.0)
== END 2024-11-20 13:25 | DRG 885 ==
LOC: ER 16:33 → GPS 20:30
PROVIDERS: ADMIT Psychiatry & Neurology Psychiatry; ATTEND Nurse Practitioner Family
DX: F39 Unspecified mood [affective] disorder (principal); F03.92 Unspecified dementia, unspecified severity, with psychotic disturbance; F03.93 Unspecified dementia, unspecified severity, with mood disturbance; F03.918 Unspecified dementia, unspecified severity, with other behavioral disturbance; F25.0 Schizoaffective disorder, bipolar type; D64.9 Anemia, unspecified; I10 Essential (primary) hypertension; F29 Unspecified psychosis not due to a substance or known physiological condition; E11.9 Type 2 diabetes mellitus without complications; Z79.899 Other long term (current) drug therapy; E78.5 Hyperlipidemia, unspecified; N40.0 Benign prostatic hyperplasia without lower urinary tract symptoms; F17.210 Nicotine dependence, cigarettes, uncomplicated; D69.6 Thrombocytopenia, unspecified; Z91.199 Patient's noncompliance with other medical treatment and regimen due to unspecified reason; Z73.6 Limitation of activities due to disability; G25.2 Other specified forms of tremor
CPT/HCPCS: 36415; 70450-TC; 80048-TC; 80053-TC; 80061-TC; 80076-TC; 80164-TC; 81001; 82565-TC; 82607-TC; 82962-TC; 83921; 84425; 84443-TC; 85025-TC; 87081-TC; G0480; J1630; J1815; J2060; J2426; J3490

== ENCOUNTER 2024-12-22 12:34 | Inpatient (IN) | payer MEDICARE, OTHER ==
[~2024-12-22] VITALS: Ht 172.7 cm; Wt 100.7 kg
[~2024-12-22 12:34] MED LIST changes: +BACL10TA PO; -BISA10SU12 RC; +CARB1TAB21 PO; -CEPH500C2 PO; +DIVA500T2 PO; +IBUP-1955 PO; +INSU100V3 SQ; +LIDO30AD10 TP; +LORA-259 PO; +MAG30ORA PO; -MUPI22OI7 TP; -NA P133E RC; +PREG25CA51 PO; +RISP3TAB5 PO; +TAMS-12 PO; +ZOLP5TAB2 PO
[2024-12-22] MEDS ORDERED: RISP1TAB97 PO (13:18)
[2024-12-22] MEDS ORDERED: POLY17PO4 PO (13:18)
[2024-12-22] MEDS ORDERED: LOPE2TAB25 PO (13:18)
[2024-12-22] MEDS ORDERED: ATOR80TA PO (13:18)
[2024-12-22] MEDS ORDERED: DOCU100C36 PO (13:18)
[2024-12-22] MEDS ORDERED: DIVA125T32 PO (13:18)
[2024-12-22] MEDS ORDERED: PROP10TA10 PO (13:18)
[2024-12-22] MEDS ORDERED: TEMA15CA PO (13:18)
[2024-12-22] MEDS ORDERED: ONDANSETRON HCL/PF 4 MG/2 ML VIAL ONE (13:29)
[2024-12-22] MEDS: IV NS 0.9% 500 ML BAG IV ONE (13:33)
[2024-12-22] MEDS: ONDANSETRON HCL/PF 4 MG/2 ML VIAL IVP ONE (13:34)
[2024-12-22 13:45] LABS: APPEARANCE,URINE SLIGHTLY CLOUDY (CLEAR); BLOOD, URINE TRACE-INTA Ery/uL (NEGATIVE); LEUKOCYTE ESTERASE ,URINE 3+ (NEGATIVE); NITRITE, URINE NEGATIVE (NEGATIVE); UGLUCOSE 2+ mg/dL (NEGATIVE)
[2024-12-22 13:48] LABS: ADD URINE CULTURE YES; SQUAMOUS EPITHELIAL CELL,UR Rare /HPF (None Seen)
[2024-12-22 13:49] LABS: CALCIUM, SERUM 9.6 mg/dL (8.5-10.1); CREATININE 1.3 mg/dL (0.6-1.3); SODIUM SERUM 137.0 mmol/L (136-145); UREA NITROGEN, BLOOD 22.0 mg/dL (7-18)
[2024-12-22 13:54] LABS: ASPARTATE AMINOTRANSFERASE 13.0 U/L (15-37); TOTAL PROTEIN, SERUM 6.8 g/dL (6.4-8.2)
[2024-12-22 13:58] LABS: PLATELET COUNT (AUTO) 90 K/uL (150-450); RED BLOOD CELL COUNT(AUTO) 4.48 MIL/uL (4.5-6.0); RED CELL DISTRIBUTION WIDTH 14.4 % (11.5-15.0); WHITE BLOOD COUNT (AUTO) 5.1 K/uL (4.3-11.0)
[2024-12-22 17:00] VITALS: O2SAT 98
[2024-12-22] MEDS: LEVOFLOXACIN 750 MG /D5W 150ML 750 MG in PREMIX 1 EA IV SCH (17:36)
[2024-12-22] MEDS ORDERED: ONDANSETRON HCL/PF 4 MG/2 ML VIAL IVP PRN (20:00)
[2024-12-22] MEDS ORDERED: MORPHINE SULFATE INJ 2 MG/ML DISP.SYRIN IV PRN (20:00)
[2024-12-22] MEDS ORDERED: Z GUARD REMEDY 4 OZ OINT TP PRN (20:00)
[2024-12-22] MEDS ORDERED: MORPHINE SULFATE INJ 4 MG/ML DISP.SYRIN IV PRN (20:00)
[2024-12-22] MEDS ORDERED: DEXTROSE 50%-WATER 50 ML DISP.SYRIN IV PRN (20:00)
[2024-12-22 20:20] VITALS: BP 117/97; TEMP 98.2; O2SAT 95
[2024-12-22] MEDS: IV NS 0.9% 1,000 ML IV PRN (20:58)
[2024-12-22] MEDS: BLOOD SUGAR DIAGNOSTIC 1 EACH STRIP IN SCH (20:58)
[2024-12-22] MEDS: INSULIN REGULAR, HUMAN 100 UNIT/ML 3 ML VIAL SQ PRN (21:10)
[2024-12-22] MEDS: ACETAMINOPHEN 325 MG TABLET PO PRN (21:44)
[2024-12-22] MEDS ORDERED: LORAZEPAM 1 MG TABLET PO PRN (23:00)
[2024-12-22] MEDS ORDERED: LOPERAMIDE HCL (2 MG CAP) 2 MG CAPSULE PO PRN (23:30)
[2024-12-23] MEDS: PROPRANOLOL HCL 10 MG TABLET PO SCH (04:33)
[2024-12-23 06:17] LABS: PLATELET COUNT (AUTO) 100 K/uL (150-450); RED BLOOD CELL COUNT(AUTO) 4.36 MIL/uL (4.5-6.0); RED CELL DISTRIBUTION WIDTH 14.4 % (11.5-15.0); WHITE BLOOD COUNT (AUTO) 4.0 K/uL (4.3-11.0)
[2024-12-23 06:30] LABS: CALCIUM, SERUM 9.7 mg/dL (8.5-10.1); CREATININE 1.1 mg/dL (0.6-1.3); PHOSPHORUS 3.4 mg/dL (2.5-4.9); SODIUM SERUM 143.0 mmol/L (136-145); UREA NITROGEN, BLOOD 20.0 mg/dL (7-18)
[2024-12-23 06:45] LABS: IRON, SERUM 54.0 ug/dl (50-175)
[2024-12-23 07:18] LABS: EOSINOPHILS % (MANUAL) 1 % (0-4); LYMPHOCYTES % (MANUAL) 21 % (16-48); MONOCYTES % (MANUAL) 15 % (0-11.0); NEUTROPHILS % (MANUAL) 63 (42-76); PLATELET ESTIMATE DECREASED
[2024-12-23 08:00] VITALS: BP 122/77; TEMP 98.2; O2SAT 96
[2024-12-23] MEDS: CARBIDOPA/LEVODOPA 25/100 MG 1 UDTAB PO SCH (08:10)
[2024-12-23] MEDS: DIVALPROEX SODIUM 125 MG TABLET.DR PO SCH (08:10)
[2024-12-23] MEDS: PANTOPRAZOLE 40 MG TABLET.DR PO SCH (08:10)
[2024-12-23] MEDS: DOCUSATE SODIUM 100 MG CAPSULE PO SCH (08:10)
[2024-12-23] MEDS: PREGABALIN 25 MG CAPSULE PO SCH (08:10)
[2024-12-23] MEDS: LIDOCAINE 5% (PATCH) 1 EA PATCH TP SCH (08:11)
[2024-12-23] MEDS: CIPROFLOXACIN IV RTU 400 MG in PREMIX 1 EA IV SCH (09:50)
[2024-12-23] MEDS: CLOTRIMAZOLE 1% 15 GM TUBE TP SCH (11:22)
[2024-12-23 15:52] VITALS: BP 115/65; TEMP 97.9; O2SAT 97
[2024-12-23] MEDS ORDERED: LEVOFLOXACIN (250MG) 250 MG TABLET PO SCH (16:00)
[2024-12-23 20:00] VITALS: BP 118/65; TEMP 98.8; O2SAT 97
[2024-12-23] MEDS: TEMAZEPAM 15 MG CAPSULE PO SCH (21:09)
[2024-12-23] MEDS: TAMSULOSIN 0.4 MG CAP.SR.24H PO SCH (21:09)
[2024-12-23] MEDS: ATORVASTATIN 40 MG TABLET PO SCH (21:09)
[2024-12-24 06:27] LABS: PLATELET COUNT (AUTO) 115 K/uL (150-450); RED BLOOD CELL COUNT(AUTO) 4.38 MIL/uL (4.5-6.0); RED CELL DISTRIBUTION WIDTH 14.1 % (11.5-15.0); WHITE BLOOD COUNT (AUTO) 4.3 K/uL (4.3-11.0)
[2024-12-24 06:32] LABS: CALCIUM, SERUM 9.8 mg/dL (8.5-10.1); CREATININE 1.1 mg/dL (0.6-1.3); SODIUM SERUM 142.0 mmol/L (136-145); UREA NITROGEN, BLOOD 20.0 mg/dL (7-18)
[2024-12-24 08:00] VITALS: BP 118/70; TEMP 98.1; O2SAT 99
[2024-12-24 16:00] VITALS: BP 116/64; TEMP 97.5; O2SAT 96
[2024-12-24 20:00] VITALS: BP 109/59; TEMP 97.5; O2SAT 95
[2024-12-25 06:37] LABS: PLATELET COUNT (AUTO) 122 K/uL (150-450); RED BLOOD CELL COUNT(AUTO) 4.44 MIL/uL (4.5-6.0); RED CELL DISTRIBUTION WIDTH 14.0 % (11.5-15.0); WHITE BLOOD COUNT (AUTO) 4.8 K/uL (4.3-11.0)
[2024-12-25 06:43] LABS: CALCIUM, SERUM 9.1 mg/dL (8.5-10.1); CREATININE 1.1 mg/dL (0.6-1.3); SODIUM SERUM 143.0 mmol/L (136-145); UREA NITROGEN, BLOOD 23.0 mg/dL (7-18)
[2024-12-25] MEDS ORDERED: CIPR-262 PO (07:55)
[2024-12-25 08:00] VITALS: BP 121/66; TEMP 98.1; O2SAT 99
[2024-12-25] MEDS: MAG HYDROX/AL HYDROX/SIMETH 30 ML UDC PO PRN (15:49)
[2024-12-25] MEDS: MAGNESIUM HYDROXIDE 30 ML UDC PO PRN (15:49)
[2024-12-25 16:00] VITALS: BP 131/62; TEMP 97.9; O2SAT 97
[2024-12-25] MEDS: BISACODYL SUPP (10 MG) 10 MG/SUPP.RECT SUPP.RECT RC PRN (17:28)
== END 2024-12-25 17:50 | DRG 690 ==
LOC: ER 12:45 → MED 19:51
PROVIDERS: ADMIT Registered Nurse Psychiatric/Mental Health; ATTEND Internal Medicine
DX: N39.0 Urinary tract infection, site not specified (principal); Z16.12 Extended spectrum beta lactamase (ESBL) resistance; N45.1 Epididymitis; E11.65 Type 2 diabetes mellitus with hyperglycemia; G20.A1 Parkinson's disease without dyskinesia, without mention of fluctuations; R79.89 Other specified abnormal findings of blood chemistry; D64.9 Anemia, unspecified; E78.5 Hyperlipidemia, unspecified; F20.9 Schizophrenia, unspecified; Z79.4 Long term (current) use of insulin; R53.1 Weakness; N28.1 Cyst of kidney, acquired; R16.2 Hepatomegaly with splenomegaly, not elsewhere classified; I70.0 Atherosclerosis of aorta; B96.20 Unspecified Escherichia coli [E. coli] as the cause of diseases classified elsewhere; F02.80 Dementia in other diseases classified elsewhere, unspecified severity, without behavioral disturbance, psychotic disturbance, mood disturbance, and anxiety
CPT/HCPCS: 36415; 71045-TC; 76870-TC; 80048-TC; 80076-TC; 81001; 82962-TC; 83540-TC; 83690-TC; 83735-TC; 84100-TC; 85025-TC; 85027-TC; 87040-TC; 87081-TC; 87086-TC; 87186-TC; 97110-TC; 97116-TC; 97530-TC; A4216; A4223; G0378; J0744; J1815; J1956; J2405; J7030; J7040